=== PATIENT | female | born 1985 | race Caucasian/White ===

== ENCOUNTER 2016-11-23 12:50 | Emergency (ER) | payer MEDICARE, MEDICAID ==
[~2016-11-23] VITALS: Ht 144.8 cm; Wt 52.0 kg
[~2016-11-23 12:50] MED LIST: AMOX500C PO; ROCE1INJ4 IV
[2016-11-23] MEDS ORDERED: CLEO300C2 PO (14:18)
[2016-11-23 14:28] VITALS: BP 136/72
[2016-11-23] MEDS ORDERED: CLINDAMYCIN 150 MG CAP PO ONE (14:30)
== END 2016-11-23 14:32 | disposition home or self-care (01) ==
LOC: M ED 14:11
DX: K04.7 Periapical abscess without sinus (principal)

== ENCOUNTER 2017-10-27 13:53 | Emergency (ER) | payer MEDICARE, MEDICAID ==
[2017-10-27] MEDS: MORPHINE 4 MG/ML 1ML VIAL (J2270) IV ×2 (15:47→17:50)
[2017-10-27] MEDS: CLINDAMYCIN 900 MG in APPROPRIATE DILUENT 1 EA IV (15:49)
[2017-10-27 15:56] LABS: BASO % 0.3 % (0.0-1.0); EOS % 0.3 % (0.0-3.0); HEMATOCRIT 41.5 % (36.0-47.0); HEMOGLOBIN 13.9 g/dl (12.0-16.0); IMMATURE GRANULOCYTE % 0.3 % (0-3.0); LYMPH # 2.1 10^3/uL (1.5-4.5); LYMPH % 19.7 % (24.0-44.0); MEAN CORPUSCULAR HEMOGLOBIN 29.8 pg (27.0-33.0); MEAN CORPUSCULAR HGB CONC 33.5 g/dl (32.0-36.5); MEAN CORPUSCULAR VOLUME 88.9 fl (80.0-96.0); MONO # 0.7 10^3/uL (0.0-0.8); MONO % 6.8 % (0.0-5.0); NEUTROPHILS # 7.9 10^3/uL (1.8-7.7); NEUTROPHILS % 72.6 % (36.0-66.0); PLATELET COUNT, AUTOMATED 297 10^3/uL (150-450); RED BLOOD COUNT 4.67 10^6/uL (4.00-5.40); RED CELL DISTRIBUTION WIDTH 12.4 % (11.5-14.5); WHITE BLOOD COUNT 10.9 10^3/uL (4.0-10.0)
[2017-10-27] MEDS ORDERED: ISOVUE-370 76% 100ML VIAL (Q9967) As Ordered (16:16)
[2017-10-27 16:17] LABS: ANION GAP 9 MEQ/L (8-16); BLOOD UREA NITROGEN 8 MG/DL (7-18); CARBON DIOXIDE LEVEL 27 MEQ/L (21-32); CHLORIDE LEVEL 105 MEQ/L (98-107); CREATININE FOR GFR 0.62 MG/DL (0.55-1.30); GLOMERULAR FILTRATION RATE > 60.0 (>60); GLUCOSE, FASTING 80 MG/DL (70-100); POTASSIUM SERUM 3.8 MEQ/L (3.5-5.1); SODIUM LEVEL 141 MEQ/L (136-145)
[2017-10-27 16:23] LABS: LACTIC ACID SEPSIS PROTOCOL 0.8 MMOL/L (0.4-2.0)
[2017-10-27] MEDS: dexameTHASONE 20 MG/5 ML VIAL (J1100) IV (18:43)
[2017-10-27] MEDS: AMPICILLIN SOD/SULBACTAM SOD 3 GM in D5W MINI-BAG PLUS 100 ML IV (19:08)
[2017-10-27] MEDS: PERCOCET 5MG/325MG TAB PO (19:41)
[2017-10-27] MEDS: OXYCODONE/APAP 5MG/325MG(BULK FOR ED) 1 TABLET PO (20:15)
== END 2017-10-27 20:25 | disposition home or self-care (01) ==
LOC: M ED 13:53
DX: K04.7 Periapical abscess without sinus (principal); R22.0 Localized swelling, mass and lump, head; R22.1 Localized swelling, mass and lump, neck; F17.210 Nicotine dependence, cigarettes, uncomplicated; R01.1 Cardiac murmur, unspecified; Z91.018 Allergy to other foods; Z79.2 Long term (current) use of antibiotics
CPT/HCPCS: J2270

== ENCOUNTER 2022-01-29 17:49 | Emergency (ER) | payer MEDICARE, MEDICAID ==
[~2022-01-29] VITALS: Ht 144.8 cm; Wt 55.4 kg
[~2022-01-29 17:49] MED LIST changes: +CLEO150C PO; +CLEO300C2 PO; +IBUP-1114 PO; +PERC5TAB12 PO; -ROCE1INJ4 IV; +ROCE1INJ6 IV; +TYLE325T5 PO
[2022-01-29] MEDS ORDERED: MUCI600T31 PO (18:07)
[2022-01-29 19:31] LABS: RSV AMPLIFICATION NEGATIVE (NEGATIVE)
[2022-01-29] MEDS ORDERED: FLON27.5 NARES (20:38)
[2022-01-29 20:52] VITALS: BP 127/75
== END 2022-01-29 20:53 | disposition home or self-care (01) ==
LOC: M ED 17:49
DX: J02.9 Acute pharyngitis, unspecified (principal); R00.2 Palpitations; Z91.018 Allergy to other foods; F17.210 Nicotine dependence, cigarettes, uncomplicated

== ENCOUNTER → 2022-04-20 | Outpatient (CLI) | payer MEDICARE, MEDICAID ==
[~2022-04-20] MED LIST changes: +FLON27.5 NARES; +MUCI600T31 PO
[2022-04-20 10:01] LABS: ALBUMIN 3.8 GM/DL (3.2-5.2); ALT/SGPT 18 U/L (12-78); BILIRUBIN,TOTAL 0.5 MG/DL (0.2-1.0); BLOOD UREA NITROGEN 11 MG/DL (7-18); CALCIUM LEVEL 8.8 MG/DL (8.5-10.1); CARBON DIOXIDE LEVEL 26 MEQ/L (21-32); CHLORIDE LEVEL 109 MEQ/L (98-107); CHOLESTEROL LEVEL 195 MG/DL (<200); CHOLESTEROL RISK RATIO 4.431 (<5); CREATININE FOR GFR 0.87 MG/DL (0.55-1.30); GLOMERULAR FILTRATION RATE > 60.0 (>60); GLUCOSE, FASTING 84 MG/DL (70-100); HDL CHOLESTEROL 44 MG/DL (>40); LDL CHOLESTEROL 136 MG/DL (<100); NON-HDL-C 151 MG/DL; POTASSIUM SERUM 4.6 MEQ/L (3.5-5.1); SODIUM LEVEL 138 MEQ/L (136-145); TOTAL PROTEIN 6.6 GM/DL (6.4-8.2); TRIGLYCERIDES LEVEL 73 MG/DL (<150)
== END ==
LOC: M LAB 08:26
PROVIDERS: ATTEND Student in an Organized Health Care Education/Training Program
DX: Z00.00 Encounter for general adult medical examination without abnormal findings (principal); Z79.899 Other long term (current) drug therapy

== ENCOUNTER → 2023-09-30 | Outpatient (REF) | LOC: M PLAIMG 12:39 | PROVIDERS: ATTEND Internal Medicine | DX: R52 Pain, unspecified (principal) ==

== ENCOUNTER → 2023-11-10 | Outpatient (REF) | payer MEDICARE, MEDICAID | LOC: M SFHCLERA 16:47 | PROVIDERS: ATTEND Family Medicine | DX: M54.42 Lumbago with sciatica, left side (principal); Z79.899 Other long term (current) drug therapy ==

== ENCOUNTER → 2023-11-12 | Outpatient (CLI) | payer MEDICARE, MEDICAID | LOC: M PLAIMG 14:16 | PROVIDERS: ATTEND Family Medicine | DX: M79.671 Pain in right foot (principal) ==

== ENCOUNTER → 2023-12-04 | Outpatient (CLI) | payer MEDICARE, MEDICAID | LOC: M LAB 09:28 | PROVIDERS: ATTEND Family Medicine | DX: G89.29 Other chronic pain (principal) ==